=== PATIENT | female | born 1950 | race Two or more races ===

== ENCOUNTER 2017-05-06 08:08 | Outpatient (CLI) | payer OTHER | END 2017-05-06 08:17 | disposition home or self-care (01) | LOC: SONOGRAMA 08:08 | DX: E04.1 Nontoxic single thyroid nodule (principal) ==

== ENCOUNTER 2018-06-16 09:27 | Outpatient (CLI) | payer OTHER | END 2018-06-16 09:33 | disposition home or self-care (01) | LOC: SONOGRAMA 09:27 | DX: E04.2 Nontoxic multinodular goiter (principal) ==

== ENCOUNTER 2023-04-29 10:49 | Outpatient (CLI) | payer OTHER | END 2023-04-29 10:55 | disposition home or self-care (01) | LOC: SONOGRAMA 10:49 | PROVIDERS: ATTEND Pathology Anatomic Pathology & Clinical Pathology | DX: D34 Benign neoplasm of thyroid gland (principal); E07.89 Other specified disorders of thyroid; E04.2 Nontoxic multinodular goiter ==